=== PATIENT | male | born 2000 | race African-American/Black ===

== ENCOUNTER 2022-05-05 14:02 | Emergency (ER) | payer BC, OTHER ==
[~2022-05-05] VITALS: Ht 177.8 cm; Wt 81.8 kg
[2022-05-05 15:46] VITALS: BP 121/62
== END 2022-05-05 16:23 | disposition home or self-care (01) ==
LOC: ER 14:03
DX: R21 Rash and other nonspecific skin eruption (principal); Z00.8 Encounter for other general examination
CPT/HCPCS: 99281

== ENCOUNTER 2022-05-07 19:27 | Emergency (ER) | payer BC ==
[~2022-05-07] VITALS: Ht 175.3 cm; Wt 81.8 kg
[2022-05-07 23:47] VITALS: BP 152/93
[2022-05-08] MEDS ORDERED: LIDOcaine 1% W/epiNEPHrine 1:100,000 20ml vial IJ ONE (01:15)
[2022-05-08] MEDS ORDERED: LIDOcaine 0.5% W/epiNEPHrine 1:200,000 50ml vial IJ ONE (01:15)
--- NOTE | 2022-05-08 01:20 | NUR ---
SUTURE SET-UP READY FOR MD AT BEDSIDE.
== END 2022-05-08 01:45 | disposition home or self-care (01) ==
LOC: ER 19:28
DX: S01.511A Laceration without foreign body of lip, initial encounter (principal); R68.84 Jaw pain; Y04.0XXA Assault by unarmed brawl or fight, initial encounter; Y93.89 Activity, other specified; Y92.89 Other specified places as the place of occurrence of the external cause; Y99.8 Other external cause status
CPT/HCPCS: 12011; 99282